=== PATIENT | female | born 2000 | race African-American/Black ===

== ENCOUNTER 2020-05-10 17:57 | Emergency (ER) | payer OTHER ==
[~2020-05-10] VITALS: Ht 147.3 cm; Wt 44.0 kg
[2020-05-10 18:06] VITALS: BP 117/59
[2020-05-10] MEDS ORDERED: NAPROSYN500 MG PO (18:25)
[2020-05-10] MEDS ORDERED: NORFLEX100 MG PO (18:25)
== END 2020-05-10 19:10 | disposition home or self-care (01) ==
LOC: ER 17:57
DX: S46.811A Strain of other muscles, fascia and tendons at shoulder and upper arm level, right arm, initial encounter (principal); M54.12 Radiculopathy, cervical region; X50.0XXA Overexertion from strenuous movement or load, initial encounter; Y93.89 Activity, other specified; Y92.89 Other specified places as the place of occurrence of the external cause; Y99.8 Other external cause status

== ENCOUNTER 2020-05-17 03:42 | Emergency (ER) | payer OTHER ==
[~2020-05-17] VITALS: Ht 147.3 cm; Wt 44.5 kg
[~2020-05-17 03:42] MED LIST: NAPROSYN500 MG PO; NORFLEX100 MG PO
[2020-05-17 04:27] VITALS: BP 119/64
[2020-05-17] MEDS ORDERED: PREDNISONE 20 M20 MG PO (04:35)
== END 2020-05-17 04:40 | disposition home or self-care (01) ==
LOC: ER 03:42
DX: M54.12 Radiculopathy, cervical region (principal); M25.512 Pain in left shoulder; R20.2 Paresthesia of skin